=== PATIENT | male | born 1970 | race Two or more races ===

== ENCOUNTER → 2017-02-22 | Outpatient (REF) | payer BC | LOC: M SFHCLERA 14:44 | DX: R50.9 Fever, unspecified (principal) ==

== ENCOUNTER → 2018-06-07 | Outpatient (REF) | payer BC ==
[~2018-06-07] MED LIST: ACET300T47 PO; ANTI2TAB16 PO; BISO5TAB2 PO; COUM1TAB17 PO; COUM2.5T17 PO; DICY20TA11 PO; FIBE625T27 PO; IMOD2TAB16 PO; NAPR-885 PO; PANT40TA3 PO; PERC5TAB12 PO; PRAV40TA2 PO; TYLE325T5 PO; VALS1TAB68 PO
== END ==
LOC: M SFHCLERA 12:40
PROVIDERS: ATTEND Physician Assistant
DX: J02.9 Acute pharyngitis, unspecified (principal)

== ENCOUNTER → 2018-08-31 | Outpatient (CLI) | payer BC ==
--- NOTE | 2018-08-31 14:05 | REP ---
TRIPLE PHASE BONE SCAN OF THE KNEES: Following the intravenous administration of 22.1 millicuries technetium 99m MDP, patient's knees are imaged in the flow phase in the anterior and posterior projections. There is mild increased blood flow at the region of the superior right knee. Immediate blood pool and 2.5-hour delayed images are performed of the knees in various projections. There is mild ill-defined increased blood pooling in the superior right knee region. Delayed images show photopenic area at the right knee joint compatible with metallic prosthesis. I do not see significant abnormal osseous uptake bilaterally. IMPRESSION: Increased blood flow and mildly increase soft tissue uptake in the superior right knee of uncertain significance, possibly inflammatory. No abnormal osseous uptake. Photopenic area in the right knee joint compatible with a metallic prosthesis. Electronically Signed by Jd Linn MD 09/02/2018 10:17 A
== END ==
LOC: M RAD 09:47
PROVIDERS: ATTEND Physician Assistant
DX: Z47.1 Aftercare following joint replacement surgery (principal)
CPT/HCPCS: 78315; A9503

== ENCOUNTER → 2019-04-12 | Outpatient (CLI) | payer BC ==
--- NOTE | 2019-04-12 08:08 | REP ---
Abdominal right upper quadrant ultrasound for epigastric pain, early satiety and weight loss: The gallbladder is surgically absent. There is no intrahepatic or extrahepatic biliary duct dilatation. The common biliary duct measures 4.8 mm in diameter. There is a focal hyperechoic area in the left lobe of the liver measuring 3.2 x 3.0 x 2.6 cm. There is a second focal hyper or hypo echoic hyperechoic area or posteriorly in the midline of the liver measuring 0.8 cm. In the right lobe of the liver. There is a septated cyst measuring 1.30 x 1.0 x 1.5 cm. The visualized areas of the pancreas are unremarkable. The pancreas is mostly obscured by bowel gas. The right kidney measures 11.9 x 5.5 x 6.9 cm and is normal size. There is a Bosniak type 1 right renal cyst at the mid pole measuring 1.6 x 1.5 x 1.4 cm. There is no right upper quadrant free fluid. Impression: There are two hyperechoic hepatic lesions, likely a solid masses. I would recommend MRI for follow up. Additionally, there is a septated hepatic cyst which could also be evaluated by MRI. There is a Bosniak type 1 right renal 1.6 cm cyst. The gallbladder surgically absent. There is no biliary duct dilatation. There is no ascites. Electronically Signed by Jd Bravo MD 04/12/2019 08:00 A
== END ==
LOC: M RAD 06:46
PROVIDERS: ATTEND Student in an Organized Health Care Education/Training Program
DX: R14.0 Abdominal distension (gaseous) (principal); R68.81 Early satiety; R10.13 Epigastric pain; R63.4 Abnormal weight loss

== ENCOUNTER → 2019-04-29 | Outpatient (CLI) | payer BC ==
--- NOTE | 2019-04-29 17:55 | REP ---
MRI abdomen and liver without and with IV contrast: History: Hepatic cyst seen on ultrasound April 12, 2019. No other cross-sectional imaging is available. The ultrasound was read as showing two solid hyperechoic lesions in the liver and a septated liver cyst. Right renal cyst was noted. Technique: Axial and coronal T1 and T2-weighted scans are obtained. Sequences include spin-echo, fast spin echo, in and [id number], diffusion, and dynamically acquired sequential post contrast images. Gadolinium enhancement dose is 20 mL of intravenous ProHance. MRI findings: There is indentation and subtle irregularity and volume loss in the posterior and inferior aspect of the right lobe of the liver. The right lobe of the liver is diminutive as a configurational variant. The left lobe is relatively larger. Question old post-traumatic change. Similarly, there is focal cortical scarring at the inferior pole of the right kidney. There are bilateral simple renal cortical cysts. The largest cyst in the left kidney is in its upper pole measuring 2.5 cm. The largest cyst in the right kidney measures 1.6 cm in diameter. No pancreatic abnormality is seen. The spleen is unremarkable. No upper abdominal or retroperitoneal adenopathy. Normal adrenal glands bilaterally. T2-weighted scans demonstrate a 3.4 cm T2 hyperintense mass in the left lobe of the liver peripherally. There are also three or four small cysts in the upper portion of the right lobe of the liver. The largest of these is 1.1 cm in diameter. None of the smaller lesions in the dome of the liver show enhancement and are consistent with benign simple cysts. Dynamically acquired sequential post contrast images of the lesion in the left lobe of the liver however demonstrate initial pattern of discontinuous peripheral contrast enhancement in the lesion which gradually fills in. This pattern is typical of a benign hemangioma of the liver. No other focal liver mass lesion is seen. Impression: There are small hepatic cysts and bilateral renal cysts which appear benign. There is a benign hemangioma in the left lobe of the liver measuring 3.4 cm in greatest diameter. No other liver mass lesion is appreciated. Electronically Signed by Reg Davis MD 04/29/2019 06:58 P
== END ==
LOC: M PLARAD 12:52
PROVIDERS: ATTEND Nurse Practitioner Family
DX: K76.89 Other specified diseases of liver (principal)

== ENCOUNTER → 2020-01-31 | Outpatient (CLI) | payer BC ==
[~2020-01-31] MED LIST changes: +PANT40TA29 PO; -PANT40TA3 PO
== END ==
LOC: M LABCAHC 12:55
PROVIDERS: ATTEND Pediatrics
DX: Z11.59 Encounter for screening for other viral diseases (principal)

== ENCOUNTER → 2020-05-09 | Outpatient (CLI) | payer BC ==
--- NOTE | 2020-05-09 10:31 | REP ---
INDICATION: K76.89- LIVER CYST COMPARISON: 04/12/2019 TECHNIQUE: Real time B-mode millan scale and color ultrasound examination using curved array transducer. FINDINGS: The liver demonstrates a 2.7 x 3.1 x 3.1 cm hyperechoic lesion in the left lobe likely hemangioma. No further hepatic abnormalities are appreciated. The pancreas is incompletely evaluated but visualized portions appear normal. Patient is noted to be status post cholecystectomy. No biliary ductal dilatation is appreciated and the common bile duct measures 4 mm diameter. Spleen is relatively normal in appearance and size measuring 11.5 x 6.5 x 3.7 cm. No focal splenic lesions are identified. The bilateral kidneys are normal in reniform shape without hydronephrosis. Right kidney measures 12.6 x 5.7 x 6.6 cm and includes 2.3 x 2.0 x 1.5 cm hypoechoic lesion likely cyst. Left kidney measures 13.6 x 5.6 x 6.8 cm and includes 2.5 x 2.1 x 2.7 cm hypoechoic lesion likely cyst. No ascites. IMPRESSION: 1. Hyperechoic liver lesion consistent with hemangioma as previously noted on MRI. 2. Bilateral renal hypodensities likely representing cysts as previously noted on MRI. <Electronically signed by Anson Vasquez > 05/09/20 1020
== END ==
LOC: M RAD 09:40
PROVIDERS: ATTEND Nurse Practitioner Family
DX: K76.89 Other specified diseases of liver (principal); N28.89 Other specified disorders of kidney and ureter

== ENCOUNTER → 2021-06-07 | Outpatient (CLI) | payer BC ==
[~2021-06-07] MED LIST changes: +BISO1TAB18 PO; -BISO5TAB2 PO; -DICY20TA11 PO; +DICY20TA20 PO; +ISOVUE-300 61% 50ML VIAL As Ordered ONE; +LIDOCAINE 1% MDV 20ML VIAL As Ordered ONE; +methylPREDNISolone SUSP 40MG/ML 1ML VIAL (DEPO MEDROL) As Ordered ONE
== END ==
LOC: M RADPRO 12:54
PROVIDERS: ATTEND Physician Assistant
DX: M16.0 Bilateral primary osteoarthritis of hip (principal)
CPT/HCPCS: 20610; 77002; J1030; Q9967

== ENCOUNTER → 2023-01-13 | Outpatient (CLI) | payer BC ==
[~2023-01-13] MED LIST changes: -ISOVUE-300 61% 50ML VIAL As Ordered ONE; -LIDOCAINE 1% MDV 20ML VIAL As Ordered ONE; -methylPREDNISolone SUSP 40MG/ML 1ML VIAL (DEPO MEDROL) As Ordered ONE
== END ==
LOC: M RAD 09:12
PROVIDERS: ATTEND Registered Nurse
DX: I82.402 Acute embolism and thrombosis of unspecified deep veins of left lower extremity (principal); Z79.01 Long term (current) use of anticoagulants; I48.19 Other persistent atrial fibrillation

== ENCOUNTER → 2023-02-03 | Outpatient (CLI) | payer OTHER | LOC: M PLAIMG 14:25 | PROVIDERS: ATTEND Clinical Nurse Specialist Family Health | DX: G44.84 Primary exertional headache (principal); S06.0X9D Concussion with loss of consciousness of unspecified duration, subsequent encounter; R26.89 Other abnormalities of gait and mobility; R42 Dizziness and giddiness ==